=== PATIENT | female | born 1945 | race Caucasian/White ===

== ENCOUNTER → 2023-11-15 14:54 | Outpatient (REF) | payer OTHER, SELFPAY | LOC: DHCBS HW 14:54 | PROVIDERS: ATTENDING PHYSICIAN Internal Medicine Cardiovascular Disease; FAMILY PHYSICIAN Internal Medicine | DX: I50.23 Acute on chronic systolic (congestive) heart failure (principal) | CPT/HCPCS: 93306 ==

== ENCOUNTER 2025-04-10 06:59 | Day surgery (SDC) | payer OTHER, SELFPAY ==
[2025-04-10 07:32] VITALS: BMI 34.7
[2025-04-10 08:02] LABS: Glucose - Point of Care 137 mg/dl (70-99)
[2025-04-10 08:59] LABS: Glucose - Point of Care 136 mg/dl (70-99)
--- NOTE | 2025-04-11 00:39 | ITS.CL.CARDI ---
Data Processing Supervisor - Cardioversion
Cardioversion
Procedure Report:
Date of Procedure: 04/10/25
Procedure: Cardioversion
Indication: Symptomatic atrial fibrillation
Performing Physician: Camila Dunn DO [facility]
Anticoagulation; Eliquis
Antiarrhythmic therapy: Amiodarone 100 mg daily
Preprocedure transesophageal echocardiogram: Please see official report. No left atrial appendage thrombus
Technique: The patient was brought to the holding area. Signed informed consent was obtained. A time out was called and performed. The patient was anesthetized by the anesthesia service. Anticoagulation status was reviewed and appropriate. R2 pads
were placed anteriorly and posteriorly. Synchronized biphasic shocks attempted at 200 J followed by 300 J and 360 J with final conversion to sinus rhythm on last attempt. There were no complications. Postprocedure EKG demonstrated sinus bradycardia
with occasional PVCs and LVH by voltage. Age-indeterminate inferior infarct. Age indeterminant anterior infarct. QTc 445 ms
Conclusion: Uncomplicated cardioversion from atrial fibrillation to sinus rhythm.
Recommendation: Routine post cardioversion care. Continue fpc anticoagulation.
== END 2025-04-10 11:00 | disposition home or self-care (01) ==
LOC: CATH 06:59
PROVIDERS: ATTENDING PHYSICIAN Internal Medicine Cardiovascular Disease; FAMILY PHYSICIAN Internal Medicine
DX: I48.11 Longstanding persistent atrial fibrillation (principal); Z79.01 Long term (current) use of anticoagulants; E11.9 Type 2 diabetes mellitus without complications; I08.3 Combined rheumatic disorders of mitral, aortic and tricuspid valves; I51.81 Takotsubo syndrome; Z79.84 Long term (current) use of oral hypoglycemic drugs; Z79.899 Other long term (current) drug therapy; E03.9 Hypothyroidism, unspecified; Z79.890 Hormone replacement therapy
CPT/HCPCS: 93312; 93320; 93325; 82962; 92960; 93005